=== PATIENT | female | born 1965 | race Hispanic/Latino ===

== ENCOUNTER 2021-06-30 17:09 | Emergency (ER) | payer OTHER ==
[~2021-06-30] VITALS: Ht 165.1 cm; Wt 71.9 kg
[2021-06-30] MEDS ORDERED: VASOTEC10 M1 PO (17:40)
[2021-06-30] MEDS ORDERED: AMLODIPINE BESYL5 MG PO (17:40)
[2021-06-30] MEDS ORDERED: NEURONTIN100 MG PO (17:40)
[2021-06-30] MEDS ORDERED: HUMALOG MI100 UNIT/2 SQ (17:40)
[2021-06-30] MEDS ORDERED: HUMULIN 70100 UNIT/1 SC (17:40)
[2021-06-30] MEDS ORDERED: BASAGLAR K100 UNIT/1 SQ (17:40)
[2021-06-30] MEDS ORDERED: METFORMIN HCL850 MG PO (17:40)
[2021-06-30] MEDS ORDERED: CRESTOR10 MG PO (17:40)
[2021-06-30] MEDS ORDERED: PREDNISONE 20 MG TAB PO ONE (18:00)
[2021-06-30] MEDS ORDERED: KETOROLAC TROMETHAMINE 60 MG/2 ML VIAL IM ONE (18:00)
[2021-06-30] MEDS ORDERED: PREDNISONE 20 MG TAB ONE (18:13)
[2021-06-30] MEDS ORDERED: KETOROLAC TROMETHAMINE 60 MG/2 ML VIAL ONE (18:13)
[2021-06-30] MEDS ORDERED: MEDROL4 MG PO (18:40)
== END 2021-06-30 18:50 | disposition home or self-care (01) ==
LOC: FSED 17:17
DX: M79.671 Pain in right foot (principal); M77.51 Other enthesopathy of right foot and ankle; E11.42 Type 2 diabetes mellitus with diabetic polyneuropathy; I10 Essential (primary) hypertension; E78.5 Hyperlipidemia, unspecified
CPT/HCPCS: 36415; 81003; 82948; 99283; J1885; J7512

== ENCOUNTER 2021-07-07 16:15 | Inpatient (IN) | payer OTHER ==
[~2021-07-07] VITALS: Ht 165.1 cm; Wt 71.2 kg
[~2021-07-07 16:15] MED LIST: AMLODIPINE BESYL5 MG PO; BASAGLAR K100 UNIT/1 SQ; CRESTOR10 MG PO; HUMALOG MI100 UNIT/2 SQ; HUMULIN 70100 UNIT/1 SC; MEDROL4 MG PO; METFORMIN HCL850 MG PO; NEURONTIN100 MG PO; VASOTEC10 M1 PO
[2021-07-07] MEDS ORDERED: ONDANSETRON HCL INJ 2MG/ML 2ML 2 MG/ML VIAL IV PRN (16:30)
[2021-07-07] MEDS ORDERED: Morphine 4mg Syringe 4 MG/ML INJ IV PRN (16:30)
[2021-07-07 16:43] LABS: BASOPHILS # (AUTO) 0.1 (0.0-0.1); BASOPHILS % 0.8 % (0.0-1.0); EOSINOPHILS # (AUTO) 0.3 (0.0-0.4); EOSINOPHILS % 3.4 % (0.0-6.0); HEMATOCRIT 35.6 % (34.2-44.1); HEMOGLOBIN 10.9 g/dL (12.0-16.0); LYMPHOCYTES # (AUTO) 3.4 (1.0-3.2); LYMPHOCYTES % 38.1 % (18.0-39.1); MEAN CORPUSCULAR HEMOGLOBIN 27.1 pg (28-32); MEAN CORPUSCULAR HGB CONC 30.6 g/dL (31-35); MEAN CORPUSCULAR VOLUME 88.6 fL (81-99); MONOCYTES # (AUTO) 0.7 (0.2-0.8); NEUTROPHILS # (AUTO) 4.4 (2.1-6.9); NEUTROPHILS % 49.4 % (38.7-80.0); PLATELET COUNT 284 x10e3/uL (140-360); RED BLOOD COUNT 4.02 x10e6/uL (3.6-5.1); RED CELL DISTRIBUTION WIDTH 13.5 % (11.7-14.4)
[2021-07-07] MEDS: SODIUM CHLORIDE 0.9% 1000ML 1,000 ML IV SCH ×2 (17:00→23:55)
[2021-07-07] MEDS: PIPERACILLIN/TAZOBACTAM 3.375 GM in SODIUM CHLORIDE 0.9% 50ML 50 ML IV SCH ×2 (17:00→23:55)
[2021-07-07 17:01] LABS: ANION GAP 16.9 mmol/L (8-16); CALCIUM 9.8 mg/dL (8.4-10.2); CREATININE, SERUM 1.05 mg/dL (0.57-1.11); POTASSIUM 4.9 mmol/L (3.5-5.1)
[2021-07-07] MEDS ORDERED: DEXTROSE 50% SYRINGE 50 ML IV PRN (17:30)
[2021-07-07] MEDS ORDERED: ACETAMINOPHEN/CODEINE 300MG - 30MG TAB PO PRN (17:30)
[2021-07-07] MEDS ORDERED: ACETAMINOPHEN 325 MG TAB PO PRN (17:30)
[2021-07-07 18:11] VITALS: BP 142/67
[2021-07-07 18:19] VITALS: BP 142/67
[2021-07-07 18:32] VITALS: BP 142/67
[2021-07-07 20:00] VITALS: BP 111/51
[2021-07-07] MEDS: GABAPENTIN 100 MG CAP PO SCH (21:08)
[2021-07-07] MEDS: INSULIN GLARGINE 100 UNITS/ML VIAL SQ SCH (21:19)
[2021-07-07] MEDS: INSULIN REGULAR, HUMAN 100 UNIT/1 ML SQ SCH (21:21)
[2021-07-08] VITALS (9 sets, daily range): BP systolic 103–156; BP diastolic 56–78
[2021-07-08 05:10] LABS: BASOPHILS # (AUTO) 0.1 (0.0-0.1); BASOPHILS % 0.9 % (0.0-1.0); EOSINOPHILS # (AUTO) 0.3 (0.0-0.4); EOSINOPHILS % 4.4 % (0.0-6.0); HEMATOCRIT 33.8 % (34.2-44.1); HEMOGLOBIN 10.3 g/dL (12.0-16.0); LYMPHOCYTES % 43.5 % (18.0-39.1); MEAN CORPUSCULAR HEMOGLOBIN 26.8 pg (28-32); MEAN CORPUSCULAR HGB CONC 30.5 g/dL (31-35); MEAN CORPUSCULAR VOLUME 87.8 fL (81-99); MONOCYTES # (AUTO) 0.7 (0.2-0.8); MONOCYTES % 9.5 % (4.4-11.3); NEUTROPHILS # (AUTO) 2.8 (2.1-6.9); NEUTROPHILS % 41.6 % (38.7-80.0); PLATELET COUNT 289 x10e3/uL (140-360); RED BLOOD COUNT 3.85 x10e6/uL (3.6-5.1); RED CELL DISTRIBUTION WIDTH 13.5 % (11.7-14.4)
[2021-07-08] MEDS: PIPERACILLIN/TAZOBACTAM 3.375 GM in SODIUM CHLORIDE 0.9% 50ML 50 ML IV SCH ×3 (05:24→18:00)
[2021-07-08 05:49] LABS: ALBUMIN 3.5 g/dL (3.5-5.0); ALBUMIN/GLOBULIN RATIO 0.9 (0.8-2.0); ANION GAP 13.4 mmol/L (8-16); CALCIUM 9.6 mg/dL (8.4-10.2); CREATININE, SERUM 1.02 mg/dL (0.57-1.11); POTASSIUM 4.4 mmol/L (3.5-5.1)
[2021-07-08] MEDS: INSULIN REGULAR, HUMAN 100 UNIT/1 ML SQ SCH ×2 (07:30→11:30)
[2021-07-08] MEDS: SODIUM CHLORIDE 0.9% 1000ML 1,000 ML IV SCH (08:30)
[2021-07-08] MEDS: METFORMIN HCL 500 MG TAB PO SCH ×2 (09:49→17:00)
[2021-07-08] MEDS: GABAPENTIN 100 MG CAP PO SCH ×3 (09:49→20:26)
[2021-07-08] MEDS ORDERED: ONDANSETRON HCL 4 MG ORAL DISINTEGRATING TAB PO PRN (11:15)
[2021-07-08] MEDS: AMLODIPINE BESYLATE 5 MG TAB PO SCH (13:06)
[2021-07-08] MEDS: ENALAPRIL MALEATE 10 MG TAB PO SCH (13:06)
[2021-07-08] MEDS: ENOXAPARIN SOD INJ 40 MG/0.4 ML SYR SC SCH (17:00)
[2021-07-08] MEDS: SIMVASTATIN 20 MG TAB PO SCH (20:26)
[2021-07-08] MEDS: INSULIN GLARGINE 100 UNITS/ML VIAL SQ SCH (21:13)
[2021-07-08] MEDS: INSULIN LISPRO 100 UNIT/1 ML 3ML VIAL SQ SCH (21:14)
[2021-07-09] VITALS (8 sets, daily range): BP systolic 120–139; BP diastolic 53–64
[2021-07-09] MEDS: SODIUM CHLORIDE 0.9% 1000ML 1,000 ML IV SCH ×4 (00:13→23:51)
[2021-07-09] MEDS: PIPERACILLIN/TAZOBACTAM 3.375 GM in SODIUM CHLORIDE 0.9% 50ML 50 ML IV SCH ×4 (00:13→21:17)
[2021-07-09] MEDS: INSULIN LISPRO 100 UNIT/1 ML 3ML VIAL SQ SCH ×4 (07:30→21:20)
[2021-07-09] MEDS: GABAPENTIN 100 MG CAP PO SCH ×3 (10:37→21:17)
[2021-07-09] MEDS: AMLODIPINE BESYLATE 5 MG TAB PO SCH (10:37)
[2021-07-09] MEDS: METFORMIN HCL 500 MG TAB PO SCH (10:37)
[2021-07-09] MEDS: ENALAPRIL MALEATE 10 MG TAB PO SCH (10:38)
[2021-07-09] MEDS: ENOXAPARIN SOD INJ 40 MG/0.4 ML SYR SC SCH (18:33)
[2021-07-09] MEDS: SIMVASTATIN 20 MG TAB PO SCH (21:17)
[2021-07-09] MEDS: INSULIN GLARGINE 100 UNITS/ML VIAL SQ SCH (21:20)
[2021-07-10] VITALS (8 sets, daily range): BP systolic 125–151; BP diastolic 67–77
[2021-07-10] MEDS: PIPERACILLIN/TAZOBACTAM 3.375 GM in SODIUM CHLORIDE 0.9% 50ML 50 ML IV SCH ×3 (05:36→21:01)
[2021-07-10] MEDS: INSULIN LISPRO 100 UNIT/1 ML 3ML VIAL SQ SCH ×4 (07:30→21:01)
[2021-07-10] MEDS: SODIUM CHLORIDE 0.9% 1000ML 1,000 ML IV SCH ×3 (08:43→23:58)
[2021-07-10] MEDS: AMLODIPINE BESYLATE 5 MG TAB PO SCH (09:14)
[2021-07-10] MEDS: GABAPENTIN 100 MG CAP PO SCH ×3 (09:14→20:58)
[2021-07-10] MEDS: ENALAPRIL MALEATE 10 MG TAB PO SCH (09:15)
[2021-07-10] MEDS ORDERED: CLOPIDOGREL BISULFATE 75 MG TAB PO NR (12:15)
[2021-07-10] MEDS: ASPIRIN 81 MG ENTERIC COATED PO SCH (13:45)
[2021-07-10] MEDS ORDERED: IOPAMIDOL 370 MG/ML 200 ML INFUS..BTL INJ ONE (14:32)
[2021-07-10] MEDS ORDERED: SODIUM CHLORIDE 0.9% 100 ML ONE (14:32)
[2021-07-10] MEDS: ENOXAPARIN SOD INJ 40 MG/0.4 ML SYR SC SCH (17:04)
[2021-07-10] MEDS: CRESTOR 10MG PO SCH (20:58)
[2021-07-10] MEDS: INSULIN GLARGINE 100 UNITS/ML VIAL SQ SCH (21:01)
[2021-07-11] VITALS (8 sets, daily range): BP systolic 98–151; BP diastolic 56–72
[2021-07-11] MEDS: PIPERACILLIN/TAZOBACTAM 3.375 GM in SODIUM CHLORIDE 0.9% 50ML 50 ML IV SCH ×3 (05:04→21:04)
[2021-07-11 05:30] LABS: BASOPHILS # (AUTO) 0.1 (0.0-0.1); BASOPHILS % 0.9 % (0.0-1.0); EOSINOPHILS # (AUTO) 0.3 (0.0-0.4); EOSINOPHILS % 4.4 % (0.0-6.0); HEMATOCRIT 35.1 % (34.2-44.1); HEMOGLOBIN 10.8 g/dL (12.0-16.0); LYMPHOCYTES # (AUTO) 2.1 (1.0-3.2); LYMPHOCYTES % 36.2 % (18.0-39.1); MEAN CORPUSCULAR HEMOGLOBIN 27.1 pg (28-32); MEAN CORPUSCULAR HGB CONC 30.8 g/dL (31-35); MONOCYTES # (AUTO) 0.5 (0.2-0.8); MONOCYTES % 9.1 % (4.4-11.3); NEUTROPHILS # (AUTO) 2.8 (2.1-6.9); NEUTROPHILS % 49.2 % (38.7-80.0); PLATELET COUNT 348 x10e3/uL (140-360); RED BLOOD COUNT 3.99 x10e6/uL (3.6-5.1); RED CELL DISTRIBUTION WIDTH 13.2 % (11.7-14.4)
[2021-07-11 06:54] LABS: ALBUMIN 3.5 g/dL (3.5-5.0); ALBUMIN/GLOBULIN RATIO 0.8 (0.8-2.0); ANION GAP 14.2 mmol/L (8-16); CALCIUM 9.7 mg/dL (8.4-10.2); CREATININE, SERUM 0.86 mg/dL (0.57-1.11); POTASSIUM 4.2 mmol/L (3.5-5.1)
[2021-07-11 07:14] LABS: THYROID STIMULATING HORMONE 0.682 uIU/mL (0.350-4.940)
[2021-07-11] MEDS: INSULIN LISPRO 100 UNIT/1 ML 3ML VIAL SQ SCH ×4 (07:30→21:00)
[2021-07-11] MEDS: GABAPENTIN 100 MG CAP PO SCH ×3 (09:10→20:26)
[2021-07-11] MEDS: SODIUM CHLORIDE 0.9% 1000ML 1,000 ML IV SCH ×2 (09:10→20:26)
[2021-07-11] MEDS: AMLODIPINE BESYLATE 5 MG TAB PO SCH (09:10)
[2021-07-11] MEDS: CLOPIDOGREL BISULFATE 75 MG TAB PO SCH (09:10)
[2021-07-11] MEDS: ASPIRIN 81 MG ENTERIC COATED PO SCH (09:10)
[2021-07-11] MEDS: ENALAPRIL MALEATE 10 MG TAB PO SCH (09:12)
[2021-07-11] MEDS: ENOXAPARIN SOD INJ 40 MG/0.4 ML SYR SC SCH (17:21)
[2021-07-11] MEDS: CRESTOR 10MG PO SCH (20:26)
[2021-07-11] MEDS: INSULIN GLARGINE 100 UNITS/ML VIAL SQ SCH (21:10)
[2021-07-12] VITALS (9 sets, daily range): BP systolic 127–157; BP diastolic 60–79
[2021-07-12] MEDS: PIPERACILLIN/TAZOBACTAM 3.375 GM in SODIUM CHLORIDE 0.9% 50ML 50 ML IV SCH ×3 (05:27→21:02)
[2021-07-12] MEDS: SODIUM CHLORIDE 0.9% 1000ML 1,000 ML IV SCH ×2 (05:27→17:53)
[2021-07-12] MEDS: INSULIN LISPRO 100 UNIT/1 ML 3ML VIAL SQ SCH ×4 (07:30→20:59)
[2021-07-12] MEDS: CLOPIDOGREL BISULFATE 75 MG TAB PO SCH (10:31)
[2021-07-12] MEDS: AMLODIPINE BESYLATE 5 MG TAB PO SCH (10:31)
[2021-07-12] MEDS: ASPIRIN 81 MG ENTERIC COATED PO SCH (10:31)
[2021-07-12] MEDS: GABAPENTIN 100 MG CAP PO SCH ×3 (10:31→20:58)
[2021-07-12] MEDS: ENALAPRIL MALEATE 10 MG TAB PO SCH (10:32)
[2021-07-12] MEDS: ENOXAPARIN SOD INJ 40 MG/0.4 ML SYR SC SCH (17:02)
[2021-07-12] MEDS: CRESTOR 10MG PO SCH (20:58)
[2021-07-12] MEDS: INSULIN GLARGINE 100 UNITS/ML VIAL SQ SCH (20:59)
[2021-07-13] VITALS (7 sets, daily range): BP systolic 112–159; BP diastolic 57–82
[2021-07-13 00:05] LABS: CLARITY,URINE CLEAR (CLEAR); COLOR,URINE YELLOW (YELLOW); KETONES,URINE NEGATIVE (NEGATIVE); LEUKOCYTE ESTERASE ,URINE NEGATIVE (NEGATIVE); NITRITE,URINE NEGATIVE (NEGATIVE); PROTEIN,URINE DIPSTICK NEGATIVE (NEGATIVE); URINE UROBILINOGEN 0.2 mg/dL (0.2 - 1)
[2021-07-13 00:09] LABS: BACTERIA,URINE FEW /HPF; EPITHELIAL CELLS,URINE FEW /LPF; RBC,URINE 0-5 /HPF (0-5); WBC,URINE (MAN) 0-5 /HPF (0-5)
[2021-07-13 05:01] LABS: BASOPHILS # (AUTO) 0.1 (0.0-0.1); BASOPHILS % 1.1 % (0.0-1.0); EOSINOPHILS # (AUTO) 0.3 (0.0-0.4); EOSINOPHILS % 4.5 % (0.0-6.0); HEMATOCRIT 34.4 % (34.2-44.1); HEMOGLOBIN 10.7 g/dL (12.0-16.0); LYMPHOCYTES # (AUTO) 2.5 (1.0-3.2); MEAN CORPUSCULAR HEMOGLOBIN 26.9 pg (28-32); MEAN CORPUSCULAR HGB CONC 31.1 g/dL (31-35); MEAN CORPUSCULAR VOLUME 86.4 fL (81-99); MONOCYTES # (AUTO) 0.6 (0.2-0.8); MONOCYTES % 9.3 % (4.4-11.3); NEUTROPHILS % 46.9 % (38.7-80.0); PLATELET COUNT 354 x10e3/uL (140-360); RED BLOOD COUNT 3.98 x10e6/uL (3.6-5.1); RED CELL DISTRIBUTION WIDTH 13.3 % (11.7-14.4)
[2021-07-13 05:39] LABS: ALBUMIN 3.5 g/dL (3.5-5.0); ALBUMIN/GLOBULIN RATIO 0.9 (0.8-2.0); ANION GAP 12.7 mmol/L (8-16); CALCIUM 9.5 mg/dL (8.4-10.2); CREATININE, SERUM 0.93 mg/dL (0.57-1.11); MAGNESIUM 2.2 MG/DL (1.3-2.1); POTASSIUM 3.7 mmol/L (3.5-5.1)
[2021-07-13] MEDS: PIPERACILLIN/TAZOBACTAM 3.375 GM in SODIUM CHLORIDE 0.9% 50ML 50 ML IV SCH ×2 (05:48→15:19)
[2021-07-13] MEDS: INSULIN LISPRO 100 UNIT/1 ML 3ML VIAL SQ SCH ×2 (07:20→11:38)
[2021-07-13] MEDS: ENALAPRIL MALEATE 10 MG TAB PO SCH (07:41)
[2021-07-13] MEDS: AMLODIPINE BESYLATE 5 MG TAB PO SCH (07:41)
[2021-07-13] MEDS: GABAPENTIN 100 MG CAP PO SCH ×2 (07:41→15:19)
[2021-07-13] MEDS: CLOPIDOGREL BISULFATE 75 MG TAB PO SCH (07:41)
[2021-07-13] MEDS: ASPIRIN 81 MG ENTERIC COATED PO SCH (07:41)
[2021-07-13] MEDS: SODIUM CHLORIDE 0.9% 1000ML 1,000 ML IV SCH (07:51)
[2021-07-13] MEDS ORDERED: LIDOCAINE HCL 2% LOCAL 20 ML VIAL ONE (08:31)
[2021-07-13] MEDS ORDERED: HEPARIN SOD (PORCINE) 1000 UNIT/ML 30ML ONE (08:31)
[2021-07-13] MEDS ORDERED: HEPARIN SOD/SOD CHLORIDE 2,000 ML ONE (08:31)
[2021-07-13] MEDS ORDERED: IOPAMIDOL 300MG/ML 100 ML INFUS..BTL IV ONE (08:32)
[2021-07-13] MEDS ORDERED: MIDAZOLAM HCL 2 MG/2 ML VIAL ONE ×2 (08:32→09:25)
[2021-07-13] MEDS ORDERED: SODIUM CHLORIDE 0.9% 1000ML 1,000 ML ONE ×2 (08:32→09:04)
[2021-07-13] MEDS ORDERED: NITROGLYCERIN/D5W 200 MCG/ML 250 ML ONE (08:32)
[2021-07-13] MEDS ORDERED: FENTANYL CITRATE/PF 100MCG/2 ML INJ ONE (08:33)
[2021-07-13] MEDS ORDERED: CLOPIDOGREL BISULFATE 75 MG TAB ONE (09:50)
[2021-07-13] MEDS ORDERED: LIDOCAINE 1% W/EPINEPHRINE 20 ML VIAL ONE (09:53)
[2021-07-13] MEDS ORDERED: ASPIRIN EC81 MG PO (14:57)
[2021-07-13] MEDS ORDERED: PLAVIX75 MG PO (14:57)
[2021-07-13] MEDS ORDERED: CLEOCIN HCL300 MG PO (14:59)
== END 2021-07-13 16:28 | disposition home or self-care (01) | DRG 271 ==
LOC: ER 16:18 → ERHOLD 17:29 → MED/SURG2 17:58
PROVIDERS: ADMIT Internal Medicine; ATTEND Internal Medicine
PROC: 04CK3ZZ Extirpation of Matter from Right Femoral Artery, Percutaneous Approach (ICD-10-PCS; principal; 2021-07-13)
PROC: 047K3EZ Dilation of Right Femoral Artery with Two Intraluminal Devices, Percutaneous Approach (ICD-10-PCS; 2021-07-13)
PROC: 047M3Z1 Dilation of Right Popliteal Artery using Drug-Coated Balloon, Percutaneous Approach (ICD-10-PCS; 2021-07-13)
PROC: B41D1ZZ Fluoroscopy of Aorta and Bilateral Lower Extremity Arteries using Low Osmolar Contrast (ICD-10-PCS; 2021-07-13)
DX: E11.51 Type 2 diabetes mellitus with diabetic peripheral angiopathy without gangrene (principal); L03.115 Cellulitis of right lower limb; S92.254A Nondisplaced fracture of navicular [scaphoid] of right foot, initial encounter for closed fracture; R53.81 Other malaise; E11.42 Type 2 diabetes mellitus with diabetic polyneuropathy; E78.5 Hyperlipidemia, unspecified; Z90.49 Acquired absence of other specified parts of digestive tract; Z83.3 Family history of diabetes mellitus; Z82.49 Family history of ischemic heart disease and other diseases of the circulatory system; Z84.89 Family history of other specified conditions; Z20.822 Contact with and (suspected) exposure to COVID-19; Z72.89 Other problems related to lifestyle; X50.1XXA Overexertion from prolonged static or awkward postures, initial encounter; E11.43 Type 2 diabetes mellitus with diabetic autonomic (poly)neuropathy; K31.84 Gastroparesis; E11.22 Type 2 diabetes mellitus with diabetic chronic kidney disease; I12.9 Hypertensive chronic kidney disease with stage 1 through stage 4 chronic kidney disease, or unspecified chronic kidney disease; N18.9 Chronic kidney disease, unspecified; I70.211 Atherosclerosis of native arteries of extremities with intermittent claudication, right leg
CPT/HCPCS: 36247; 36415; 37224; 37225; 37226; 75625; 75635; 75716; 76937; 80053; 80061; 81001; 82270; 82948; 83036; 83605; 83735; 84443; 85025; 85651; 85730; 87040; 93005; 93306; 93926; 93970; 94799; 99152; 99153; 99284; C1724; C1725; C1760; C1769; C1876; C1887; C1894; C2623; J1644; J1650; J1817; J2001; J2250; J2543; J3010; J7030; J7050; Q9967; U0002